=== PATIENT | female | born 1950 | race Caucasian/White ===

== ENCOUNTER 2025-01-09 15:45 | Outpatient (CLI) | payer MEDICARE, SELFPAY | END 2025-01-09 23:59 | disposition home or self-care (01) | LOC: LAB.DROPOF 01-11 03:56 | PROVIDERS: PCP Family Medicine; Visit Provider Family Medicine | DX: N39.0 Urinary tract infection, site not specified (principal); R30.0 Dysuria | CPT/HCPCS: 87086; 87088; 87186 ==